=== PATIENT | male | born 1980 | race Caucasian/White ===

== ENCOUNTER 2017-02-22 08:33 | Emergency (ER) | payer SELFPAY ==
[2017-02-22] MEDS ORDERED: Ibuprofen 800 MG TAB ONE (09:10)
--- NOTE | 2017-02-22 09:31 | RAD ---
LEFT FOOT THREE VIEWS: History: Injury to left foot. FINDINGS: Tarsals appear intact. The metatarsals appear intact. There is a displaced angulated fracture involving the distal shaft of the proximal phalanx of the th ird toe. The distal fragment shows dorsal angulation on the lateral view. There is a fracture involving the distal phalanx of the great toe with an obliquely oriented fractur e extending from the medial aspect of the distal phalanx through the articular surface at the IP naricsa nt. IMPRESSION: 1. Fracture with angulation involving the proximal phalanx of third toe. 2. Fracture involving the distal phalanx of the great toe. POS: [facility]
--- NOTE | 2017-02-22 10:41 | RAD ---
LEFT GREAT TOE TWO VIEWS: History: Post reduction. Comparison: 02-12-17 at 8:51 a.m. FINDINGS: Redemonstration of a fracture involving the distal phalanx of the first digit and distal aspect of t he proximal phalanx of the third digit. No significant change in alignment. IMPRESSION: Findings as above. POS: [facility]
== END 2017-02-22 09:50 | disposition home or self-care (01) ==
LOC: NAV ERS 08:33
DX: S92.422A Displaced fracture of distal phalanx of left great toe, initial encounter for closed fracture (principal); S92.512A Displaced fracture of proximal phalanx of left lesser toe(s), initial encounter for closed fracture; W04.XXXA Fall while being carried or supported by other persons, initial encounter
CPT/HCPCS: 99001